=== PATIENT | male | born 1985 ===

== ENCOUNTER 2024-09-04 13:19 | Outpatient (AMB) | payer BC, SELFPAY ==
--- NOTE | 2024-09-04 13:22 | MHC.PC.OV ---
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: No Accompanied by: Self / Same As Patient Allergies No Known Allergies Allergy (Verified 09/04/24 13:39) Medication List - Last Reconciled 09/04/24 by TJ Sanchez lisinopril-hydrochlorothiazide 10-12.5 mg 1 tab PO DAILY Tobacco use date assessed: 09/04/24 Dental Screening Dental Screen Date: 09/04/24 Did you have a dental visit in the last 12 months?: Yes Did you have a dental problem in the last 6 months where you did not have access to dental care?: No Was dental information given to patient?: 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 The patient has a history of essential hypertension, which he monitors daily using a blood pressure cuff provided by his insurance. He reports that his blood pressure readings are generally below 120/80 mmHg, although they can be elevated when he is nervous or after consuming coffee. The patient also has a history of obstructive sleep apnea, for which he uses a CPAP machine at home. He describes his condition as moderate and states that it does not severely impact his daily activities. Family history includes hypertension and diabetes, with his mother having osteoporosis and his father having ALS. The patient has a sister who is currently healthy. Reports that he does not have any concerns today He is here to establish care Reports he drinks coffee throughout the day, even before going to bed He had one black coffee before this appointment-question the reason for his elevated blood pressure he does no smoke or drinks alcohol Denies chest pain, shortness of breath, heart palpitation or dizziness Denies abdominal pain or change in bowel habits Denies any urinary symptoms PFSH Medical History CARLOS (obstructive sleep apnea) HTN (hypertension) Surgical History No pertinent past surgical history Family History Father ALS (amyotrophic lateral sclerosis) Diabetes mellitus Mother Diabetes mellitus Osteoporosis Social History Household Members: Significant Other and Children Both parents involved: Yes Caregiver staying overnight: No Housing: House Are you a primary childcare director to a significant other at home: No Do you presently have visiting nurse or other home services: No Alcohol intake: never Patient Tobacco Use Status: Never used Tobacco e-Cigarette/Vaping Use: Never Used service: No Current occupational status: employed 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 1. Little interest or pleasure in doing things: not at all 2. Feeling down, depressed, or hopeless: not at all 3. Trouble falling or staying asleep, or sleeping too much: not at all 4. Feeling tired or having little energy: not at all 5. Poor appetite or overeating: not at all 6. Feeling bad about yourself - or that you are a failure or have let yourself or your family down: not at all 7. Trouble concentrating on things, such as reading the newspaper or watching television: not at all 8. Moving or speaking so slowly that other people could have noticed. Or the opposite - being so fidgety or restless that you have been moving around a lot more than usual: not at all 9. Thoughts that you would be better off or of hurting yourself in some way: not at all Total score: 0 Depression Screening Interpretation: Negative Depression Screening Done: Yes 72737 - PHQ-9 Billing: Yes Source: Developed by Drs. Javier Sahu, Dipak Lam and colleagues, with an educational patsy from [employer]. Thrive Questionnaire Date Thrive assessed: 09/04/24 I am a: Patient What is your living situation today?: I have a steady place to live Within the past 12 months, did the food you bought not last and you didn't have the money to get more?: Never true Within the past 12 months, did you worry whether your food would run out before you got money to buy more?: Never true Do you have trouble paying for medicines?: No Do you have trouble getting transportation to medical appointments?: No Do you have trouble paying your heating and electricity bill?: No Do you have trouble taking care of your child, family member or friend?: No Do you have trouble with day-to-day activities such as bathing, preparing meals, shopping, managing finances, etc.?: No Are you currently unemployed and looking for a job?: No Are you interested in more education?: No Please select the resources that you would like help with: None Currently or been in a relationship where the following occur: No concerns reported THRIVE Score: 0 AUDIT C Alcohol Use Questionnaire (AUDIT-C) 1. How often do you have a drink containing alcohol?: Never 3. How often do you have six or more drinks on one occasion?: Never Total Score: 0 NICOLAS-7 AMB Questionnaire NICOLAS-7 Date NICOLAS - 7 assessed: 09/04/24 Feeling nervous, anxious, or on edge: 0 = Not at all Not being able to stop or control worryin = Not at all Worrying too much about different things: 0 = Not at all Trouble relaxin = Not at all Being so restless that it is hard to sit still: 0 = Not at all Becoming easily annoyed or irritable: 0 = Not at all Feeling afraid as if something awful might happen: 0 = Not at all Total NICOLAS-7 score (0-4 normal; 5-9 mild; 10-14 moderate; 15-21 severe): 0 Source: Developed by Drs. Javier Sahu, Dipak Lam and colleagues, with an educational patsy from [employer]. NICOLAS-7 Assessment Billing NICOLAS-7 Assessment Tool: NICOLAS-7 Assessment 11768 Review of Systems Const Denies headache(s) Eyes Denies loss of vision ENT Denies vertigo, Denies dizziness, Denies headache(s) and Denies sore throat Card Denies chest pain, Denies leg edema and Denies lightheadedness Resp Denies cough, Denies hemoptysis and Denies wheezing GI Denies abdominal pain, Denies melena, Denies constipation, Denies diarrhea and Denies vomiting Denies dysuria, Denies urinary frequency and Denies urinary urgency Musc Denies arthralgias, Denies joint swelling, Denies numbness and Denies tingling Neuro Denies Abnormal speech present, Denies behavioral changes, Denies vertigo, Denies dizziness, Denies headache(s), Denies loss of vision, Denies memory loss, Denies numbness and Denies tingling Psych Denies anxiety, Denies behavioral changes, Denies depression, Denies memory loss and Denies panic attacks Soren/Lymph Denies easy bleeding and Denies easy bruising Aller/Immun Denies wheezing Physical exam (Primary Care) Vital Signs: Last Vital Signs Temp 97.1 F 09/04/24 13:24 Pulse 70 09/04/24 13:24 Resp 18 09/04/24 13:24 BP 142/70 H 09/04/24 13:24 Pulse Ox 95 09/04/24 13:24 Oxygen Delivery Method Room Air 09/04/24 13:24 BMI result Body Mass Index 42.3 Tobacco/Smoking Status: Tobacco use Status Tobacco use date assessed 09/04/24 09/04/24 13:33 Patient Tobacco Use Status Never used Tobacco 09/04/24 13:33 e-Cigarette/Vaping Use Never Used 09/04/24 13:33 PHQ-9: PHQ-9 Score PHQ-9: Total score 0 09/04/24 14:09 Depression Screening Interpretation: Negative Thrive Assessment: Date of Thrive Assessment Date Thrive assessed 09/04/24 09/04/24 13:22 Currently or been in a relationship where the following occur: No concerns reported Const General: healthy appearing, no acute distress, alert and awake Nutritional Appearance: well nourished Orientation/consciousness: oriented to person, oriented to place and oriented to time HENMT Ears: TM's normal bilaterally General nose exam: Normal nasal mucous membranes and turbinates present Eyes Conjunctivae: conjunctivae normal Sclerae: sclerae normal Pupils: Equal, round and reactive pupils present Neck Neck: Yes no lymphadenopathy and Yes no JVD Thyroid: Thyroid normal Carotids: no bruits Resp Effort & Inspection: normal respiratory effort and not tachypneic Auscultation: no crackles, no rales, no rhonchi and no wheezes Cardio Rate: regular rate Rhythm: regular rhythm Heart sounds: no murmurs and normal S1 and S2 GI Palpation (GI): Soft to palpation, nontender, no hepatomegaly and no splenomegaly Auscultation: normal bowel sounds Skin General skin exam: no rashes or lesions noted and dry skin Neuro General: oriented to person, oriented to place and oriented to time Cranial nerves: Yes Equal, round and reactive pupils present Speech: No Abnormal speech present Gait exam (Neuro): Normal gait present Motor exam (neuro): no tremor noted Extrem Right upper extremity: full ROM Left upper extremity: full ROM Right lower extremity: full ROM; no edema Left lower extremity: full ROM; no edema Psych Mental Status: mental status grossly normal Speech and movement: Normal speech and movement present Affect: normal affect Attitude: cooperative Thought process: Normal thought process present Coding Level of Care Code New Pt Level 3 (30008) Diagnoses Hypertension, unspecified type I10 Hypertension type: unspecified CARLOS (obstructive sleep apnea) G47.33 Additional Codes NICOLAS-7 Assessment Billing - NICOLAS-7 Assessment Tool: NICOLAS-7 Assessment 37046 ([id number]) PHQ-9 - 59023 - PHQ-9 Billing: Yes ([id number]) Time Spent (min) 34 Assessment & Plan Assessment & Plan (1) HTN (hypertension): Code(s): I10 - Essential (primary) hypertension Category: Medical Qualifiers: Hypertension type: unspecified Qualified Code(s): I10 - Essential (primary) hypertension Plan: Blood pressure 142/70-goal systolic less than 130 mm Hg Reinforced low-salt diet. Decrease caffeine intake. Continue lisinopril-hydrochlorothiazide 10-12.5 mg daily (2) CARLOS (obstructive sleep apnea): Code(s): G47.33 - Obstructive sleep apnea (adult) (pediatric) Category: Medical Plan: Continue CPAP Plan The plan includes conducting blood work to assess kidney, liver, and thyroid function, as well as a comprehensive metabolic panel. The patient is advised to return in 7-8 weeks for a complete physical examination and review of lab results. He is instructed to undergo fasting before the lab tests to ensure accurate results, particularly for cholesterol levels. Patient was informed and verbally consented to the use of an ambient scribe for clinic note documentation during this visit. Orders: Orders Comprehensive Bath. Panel Fast 09/04/24 Z00.00 - Encounter for general adult medical examination without abnormal findings, I10 - Essential (primary) hypertension, G47.33 - Obstructive sleep apnea (adult) (pediatric) UA CC w/rflx Micro + Cult 09/04/24 Z00.00 - Encounter for general adult medical examination without abnormal findings, I10 - Essential (primary) hypertension, G47.33 - Obstructive sleep apnea (adult) (pediatric) Vitamin D 25-OH Total 09/04/24 Z00.00 - Encounter for general adult medical examination without abnormal findings, I10 - Essential (primary) hypertension, G47.33 - Obstructive sleep apnea (adult) (pediatric) Complete Blood Count Auto Diff 09/04/24 Z00.00 - Encounter for general adult medical examination without abnormal findings, I10 - Essential (primary) hypertension, G47.33 - Obstructive sleep apnea (adult) (pediatric) Lipid Panel 09/04/24 Z00.00 - Encounter for general adult medical examination without abnormal findings, I10 - Essential (primary) hypertension, G47.33 - Obstructive sleep apnea (adult) (pediatric) TSH reflex Free T4 09/04/24 Z00.00 - Encounter for general adult medical examination without abnormal findings, I10 - Essential (primary) hypertension, G47.33 - Obstructive sleep apnea (adult) (pediatric) Patient Instructions: - Monitor blood pressure daily and record readings - Use CPAP machine nightly for sleep apnea - Schedule and complete fasting lab tests before next visit
[2024-09-04 13:24] VITALS: BP 142/70; PULSE 70; RESP 18; TEMP 36.2; O2SAT 95; BMI 42.3
--- OUTSIDE RECORDS SUMMARY | 2024-09-04 13:32 | XMS_ITS | Clinical Summary ---
Author Organization [facility] Address [address] [place] [address] Care Team Providers Care President + Publisher Name Role Phone Edd Boyd Primary Care Provider [phone] Source Comments PLEASE NOTE, if this patient is a minor, it may be UNLAWFUL to discuss sensitive information that is contained in these records (such as FAMILY PLANNING, MENTAL HEALTH or SUBSTANCE ABUSE) with the minor patient's parent or other person without the patient's specific authorization.[facility] Allergies No known active allergies Medications lisinopriL-hydroc hlorothiazide 10-12.5 mg per tablet 1 Tablet 12/21/2022 Active lisinopriL-hydroc hlorothiazide 10-12.5 mg per tabletIndications :Essential hypertension Take 1 Tablet by mouth once daily 90 Tablet 3 10/03/2023 Active Active Problems Problem Noted Date Diagnosed Date Class 2 obesity 12/21/2022 Obstructive sleep apnea syndrome 12/21/2022 Snoring 08/18/2022 Unspecified family circumstance 03/10/2019 Essential hypertension 05/21/2018 Overview (10/03/2023): Started on 5mg Lisinopril 05/21/18 Outside Source Comment: Overview: Started on 5mg Lisinopril 05/21/18 Immunizations Immunization Administration Dates Next Due Hep A, adult 10/15/2020 Hep B, Adult/Adol ([id number]/RECOMBIVAX-AD ULT) 10/15/2020 Family History Medical History Relation Name Comments Diabetes Father Hypertension Father Heart Problems Maternal Grandfather Cancer Maternal Grandmother lung, t hroat Diabetes Mother Hypertension Mother Heart Problems Paternal Grandfather Relation Name Status Comments Father Maternal Grandfather Maternal Grandmother Mother Paternal Grandfather Social History Tobacco Use Types Packs/Day Years Used Date Smoking Tobacco: Never Smokeless Tobacco: Never Tobacco Cessation:Counseling Given: Not Answered Alcohol Use Standard Drinks/Week Comments No 0 (1 standard drink = 0.6 oz pur e alcohol) Social Connections Answer Date Recorded How often do you feel lonely or isolated from th ose around you? 1 10/03/2023 Financial Resource Strain Answer Date R ecorded Hard to pay for: Food 1 10/03/2023 Stress Answer Date Recorded Do you feel these kinds of stress these days? 1 10/03/2023 Physical Activity Answer Date Recorded Physical Activity 0 09/30/2018 Food Insecurity Answer Date Recorded Hard to pay for: Food 1 10/03/2023 Transportation Needs Answer Date Record ed Hard to pay for: Transportation 1 10/03/2023 Housing Stability Answer Date Recorded Hard to pay for: Rent/Mortgage payment 1 10/03/2023 Safety and Environment Answer Date César rded Safety 0 08/14/2022 Utilities Answer Date Recorded Hard to pay for: Utilities 1 10/02 Employment Answer Date Recorded Employment 0 09/30/2018 Sex and Gender Information Value Date Recorded Sex Assigned at Male 02/20/2018 6:48 AM PST Legal Sex Male 9:34 AM PST Gender Identity Male 02/20/2018 6:48 AM PST Sexual Orientation Straight 02/20/2018 6: 48 AM PST Last Filed Vital Signs Vital Sign Reading Time Taken Comments Blood Pressure 116/75 10/03/2023 9:40 AM EDT Pulse 72 10/03/2023 9:40 AM EDT Temperature 36.9 C (98.5 F) 10/03/2023 9:40 AM EDT Respiratory Rate 18 10/03/2023 9:40 AM EDT Oxygen Saturation 97% 10/03/2023 9:40 AM EDT Inhaled Oxygen Concentration - - Weight 137.4 kg (303 lb) 10/03/2023 9:40 AM EDT Height 182.9 cm (6') 10/03/2023 9:40 AM EDT Body Mass Index 41.09 10/03/2023 9:40 AM EDT Plan of Treatment Health Maintenance Due Date Last Done Comments Anxiety Screening 1985 Imm-Hepatitis B (2 of 3 - 19 + 3-dose series) 11/12/2020 10/15/2020 [id number]-UISNK-13 (3 - 2023- season) 2023 06/20/2020, 05/23/2020 Diabetes Screening 11/05/2023 11/04/2020, 0 11/04/2020, 02/20/2018, Additional history exists Alcohol and Drug Screen 02/06/2024 08/15/19, 03/07/2021, 10/15/2020, Additional history exists Depression Annual Screen 02/06/2024 10/03/2023, 02/05 Annual Wellness (Adult): Indicated (All Coverage) 10/02/2024 10/03/2023, 08/14/2022, 10/15/2020, Additional history exists Tobacco Screening 10/02/2024 10/03/2023, 10/15/2020 Lipid Screening 08/14/2025 08/14/2022, 10/08, 02/20/2018, Additional history exists HIV Screening Completed 02/20/2018, 02/20/2018 Hepatitis C Screening Completed 02/20/2018 Imm-DTaP/Tdap/Td Discontinued Imm-Influenza Discontinued Procedures Procedure Name Priority Date/Time Associated Diagnosis Comments LIPID PANEL Routine 08/14/2022 10:11 AM EDT Annual physical exam COMPREHENSIVE METABOLIC PANEL Routine 11/04/2020 8:10 AM EDT Essential hypertension Class 3 severe obesity due to excess calories with serious comorbidity and body mass index (BMI) of 45.0 to 49.9 in adult ([facility]) Routine adult health maintenance ANTIBODY HIV-1&HIV-2 SINGLE RESULT Routine 02/20/2018 10:35 AM EST Encounter for general adult medical examination with abnormal findings HEPATITIS A,B,C PANEL Routine 02/20/2018 10:35 AM EST Encounter for general adult medical examination with abnormal findings from Last 3 Months or Most Recently Relevant to Health Maintenance Results * (ABNORMAL) LIPID PANEL (08/14/2022 10:11 AM EDT) Pathologist [facility] CHOLESTEROL, TOTAL 179 <200 mg/dL [facility] HDL CHOLESTEROL 40 > OR = 40 mg/dL [facility] TRIGLYCERIDES 76 <150 mg/dL [facility] LDL-CHOLESTEROL 122(H) 99 mg/dL (calc) [facility] Comment: Reference range: <100 Desirable range <100 mg/dL for primary prevention; <70 mg/dL for patients with CHD or diabetic patients with > or = 2 CHD risk factors. LDL-C is now calculated using the Kwame calculation, which is a validated novel method providing better accuracy than the Friedewald equation in the estimation of LDL-C. Junior SS et al. MEAGAN. 2013;310(19): 5176-5101 (http://education.Balakam/faq/TRE427) CHOL/HDLC RATIO 4.5 <5.0 (calc) [employer] [facility] NON-HDL CHOLESTEROL 139(H) <130 mg/dL (calc) [facility] Comment: For patients with diabetes plus 1 major ASCVD risk factor, treating to a non-HDL-C goal of <100 mg/dL (LDL-C of <70 mg/dL) is considered a therapeutic option. Blood Blood / Unknown 08/14/2022 1 0:11 AM EDT 08/14/2022 10:12 AM EDT Edd EL LAB - BLOOD DRAW Final Result [employer] [address] [address], [employer] [address] [address] * COMPREHENSIVE METABOLIC PANEL (11/04/2020 8:10 AM EDT) [facility] GLUCOSE 97 65 - 99 mg/dL [facility] Comment: Fasting reference interval UREA NITROGEN (BUN) 18 7 - 25 mg/dL [facility] CREATININE (blood) 0.95 0.60 - 1.35 mg/dL [facility] GFR ESTIMATED 102 > OR = 60 mL/min/1 .73m2 [facility] EGFR 118 > OR = 60 mL/min/1 .73m2 [facility] BUN/CREATININE RATIO NOT APPLICABLE 6 - 22 [facility] SODIUM 138 135 - 146 mmol/L [facility] POTASSIUM 4.6 3.5 - 5.3 mmol/L [facility] CHLORIDE 100 98 - 110 mmol/L [facility] CARBON DIOXIDE 32 20 - 32 mmol/L [facility] CALCIUM 9.9 8.6 - 10.3 mg/dL [facility] PROTEIN, TOTAL 7.0 6.1 - 8.1 g/dL [facility] ALBUMIN 4.7 3.6 - 5.1 g/dL [facility] GLOBULIN 2.3 1.9 - 3.7 g/dL (calc) [facility] ALBUMIN/GLOBUL IN RATIO 2.0 1.0 - 2.5 (calc) [facility] BILIRUBIN, TOTAL 0.6 0.2 - 1.2 mg/dL [facility] ALKALINE PHOSPHATASE 80 36 - 130 U/L [facility] AST 23 10 - 40 U/L [facility] ALT 27 9 - 46 U/L [facility] Blood Blood / Unknown 11/04/2020 8 :10 AM EDT 11/04/2020 8:12 AM EDT Narrative [facility] - 11/04/2020 8:57 PM EDT FASTING:YES Edd EL LAB - BLOOD DRAW Edited Result - Final [facility] [address] [address], [facility] [address] [address] * HEPATITIS A,B,C PANEL (02/20/2018 10:35 AM EST) HEPATITIS B SURFACE ANTIBODY NEGATIVE NEGATIVE [facility] HEPATITIS B SURFACE ANTIGEN NEGATIVE NEGATIVE [facility] Comment: Over the counter supplements containing high doses of biotin may interfere with this assay. If interference is suspected, patients shoud be retested after refraining from biotin supplements for 72 hours. HEPATITIS C VIRUS DIAGNOSTIC NEGATIVE NEGATIVE [facility] HEPATITIS A ANTIBODY TOTAL NEGATIVE NEGATIVE [facility] Comment: Over the counter supplements containing high doses of biotin may interfere with this assay. If interference is suspected, patients shoud be retested after refraining from biotin supplements for 72 hours. HEPATITIS B CORE ANTIBODY NEGATIVE NEGATIVE [facility] Blood specimen (specimen) Blood / Unknown 02/20/2018 10:35 AM EST 02/20/2018 11:20 AM EST Narrative [facility] - 02/20/2018 4:34 PM EST [employer] [address] [employer] - Migdalia Casey MD PT ID [id number] ORD# [id number] Alexander Don PA-C LAB - BLOOD DRAW Edited Resul t - Final Performing Organization Address [facility] [place] [address], * HIV-1 & HIV-2 ANTIBODIES (02/20/2018 10:35 AM EST) [facility] HIV 1 AND 2 ANTIBODY SCREEN NEGATIVE NEGATIVE [facility] Comment: This assay is a 4th generation assay allowing for earlier detection of HIV infection by detecting the presence of the HIV-1 p24 antigen as well as the traditional antibodies to HIV type 1 (including group O) and type 2. Use of a 4th generation assay is the current CDC recommendation for HIV screening. Blood specimen (specimen) Blood / Unknown 02/20/2018 10:35 AM EST 02/20/2018 11:20 AM EST Narrative [facility] 02/20/2018 5:03 PM EST [employer] [address] [employer] - Migdalia Casey MD PT ID [id number] ORD# [id number] Alexander Don PA-C LAB - BLOOD DRAW Final Result Performing Organization Address [facility]/[place] [address], from Last 3 Months or Most Recently Relevant to Health Maintenance Insurance [employer]I [employer]AS Care Teams President + Publisher Relationship Specialty Start Date End Date Edd Boyd PA [address] [place] [address] PCP - General FAMILY MEDICINE PA 09/09/20
== END 2024-09-04 14:03 | disposition home or self-care (01) ==
LOC: HO.HMCH 13:20
DX: I10 Essential (primary) hypertension (principal); G47.33 Obstructive sleep apnea (adult) (pediatric)

== ENCOUNTER → 2024-09-04 13:19 | Outpatient (BNVA) | payer BC, SELFPAY | DX: I10 Essential (primary) hypertension (principal); G47.33 Obstructive sleep apnea (adult) (pediatric); Z79.899 Other long term (current) drug therapy; Z13.31 Encounter for screening for depression; Z13.39 Encounter for screening examination for other mental health and behavioral disorders | CPT/HCPCS: 96127 ==

== ENCOUNTER 2024-10-23 07:08 | Outpatient (REF) | payer BC, SELFPAY ==
--- OUTSIDE RECORDS SUMMARY | 2024-10-23 07:12 | XMS_ITS | Clinical Summary ---
Author Organization [facility] Address [address] [place] [address] Care Team Providers Care Inpatient Auditor Name Role Phone Edd Boyd Primary Care Provider [phone] Source Comments PLEASE NOTE, if this patient [...] Hep A, adult 10/15/2020 Hep B, Adult/Adol ([id number]-AD ULT) 10/15/2020 Family History Medical History Relation [...] Date Last Done Comments Anxiety Screening 1983 Imm-HPV (1 - 3-dose SCDM series) 07/29/2010 Imm-Hepatitis B (2 of 3 - 19 + 3-dose series) 11/12/2020 10/15/2020 Tobacco Screening 10/15/2021 10/15/2020 Diabetes Screening 11/05/2023 11/04/2020, 0 11/04/2020, 02/20/2018, Additional history exists Alcohol and Drug Screen 02/06/2024 08/15/19, 03/07/2021, 10/15/2020, Additional history exists Depression Annual Screen 02/06/2024 10/03/2023, 02/05 Annual Wellness (Adult): Indicated (All Coverage) 10/02/2024 10/03/2023, 08/14/2022, 10/15/2020, Additional history exists [id number] ( season) 2024 06/20/2020, 05/23/2020 Lipid Screening 08/14/2025 08/14/2022, 10/08, 02/20/2018, Additional [...] (BMI) of 45.0 to 49.9 in adult ([facility]) Routine adult health maintenance ANTIBODY HIV-1&HIV-2 SINGLE RESULT Routine 02/20/2018 10:35 AM EST Encounter for general adult medical examination with abnormal findings HEPATITIS A,B,C PANEL Routine 02/20/2018 10:35 AM EST Encounter for general adult medical examination with abnormal findings from Last 3 Months or Most Recently Relevant to Health Maintenance Results * (ABNORMAL) LIPID PANEL (08/14/2022 10:11 AM EDT) CHOLESTEROL, TOTAL 179 <200 mg/dL [facility] HDL CHOLESTEROL 40 > OR = 40 mg/dL [facility] TRIGLYCERIDES 76 <150 mg/dL [facility] LDL-CHOLESTEROL 122(H) 99 mg/dL (calc) [facility] Comment: Reference range: <100 Desirable range <100 mg/dL for primary prevention; <70 mg/dL for patients with CHD or diabetic patients with > or = 2 CHD risk factors. LDL-C is now calculated using the Kwame calculation, which is a validated novel method providing better accuracy than the Friedewald equation in the estimation of LDL-C. Junior SS et al. MEAGAN. 2013;310(19): 5410-7925 (http://education.Clearhaus/faq/ZGK402) CHOL/HDLC RATIO 4.5 <5.0 (calc) [facility] NON-HDL CHOLESTEROL 139(H) <130 mg/dL (calc) [facility] Comment: For patients with diabetes plus 1 major ASCVD risk factor, treating to a non-HDL-C goal of <100 mg/dL (LDL-C of <70 mg/dL) is considered a therapeutic option. Blood Blood / Unknown 08/14/2022 1 0:11 AM EDT 08/14/2022 10:12 AM EDT Edd [facility] - BLOOD DRAW Final Result [employer] [facility] [address] [address], [facility] [address] [place] [address] * COMPREHENSIVE METABOLIC PANEL (11/04/2020 8:10 AM EDT) Pathologist [facility] GLUCOSE 97 65 - 99 mg/dL [facility] Comment: Fasting reference interval [facility] NITROGEN (BUN) 18 7 - 25 mg/dL [facility] CREATININE (blood) 0.95 0.60 - 1.35 mg/dL [facility] GFR ESTIMATED 102 > OR = 60 mL/min/1 .73m2 [facility] EGFR 118 > OR = 60 mL/min/1 .73m2 [facility] BUN/CREATININE RATIO NOT APPLICABLE 6 - 22 [facility] SODIUM 138 135 - 146 mmol/L [facility] POTASSIUM 4.6 3.5 - 5.3 mmol/L [facility] CHLORIDE 100 98 - 110 mmol/L [facility] CARBON DIOXIDE 32 20 - 32 mmol/L [facility] CALCIUM 9.9 8.6 - 10.3 mg/dL [facility] PROTEIN, TOTAL 7.0 6.1 - 8.1 g/dL [facility] [employer] [facility] ALBUMIN 4.7 3.6 - 5.1 g/dL [facility] GLOBULIN 2.3 1.9 - 3.7 g/dL (calc) [facility] ALBUMIN/GLOBUL IN RATIO 2.0 1.0 - 2.5 (calc) [facility] BILIRUBIN, TOTAL 0.6 0.2 - 1.2 mg/dL [facility] ALKALINE PHOSPHATASE 80 36 - 130 U/L [facility] AST 23 10 - 40 U/L [facility] ALT 27 9 - 46 U/L [facility] Blood Blood / Unknown 11/04/2020 8 :10 AM EDT 11/04/2020 8:12 AM EDT Narrative [facility] - 11/04/2020 8:57 PM EDT FASTING:YES us Edd [facility] - BLOOD DRAW Edited Result - Final [facility] [address] [address], [facility] [address] [address] * HEPATITIS A,B,C PANEL (02/20/2018 10:35 AM EST) HEPATITIS B SURFACE ANTIBODY NEGATIVE NEGATIVE [facility] HEPATITIS B SURFACE ANTIGEN NEGATIVE NEGATIVE [facility] Comment: Over the counter supplements containing high doses of biotin may interfere with this assay. If interference is suspected, patients shoud be retested after refraining from biotin supplements for 72 hours. HEPATITIS C VIRUS DIAGNOSTIC NEGATIVE NEGATIVE [facility] HEPATITIS A ANTIBODY TOTAL NEGATIVE NEGATIVE [facility] Comment: Over the counter supplements containing high doses of biotin may interfere with this assay. If interference is suspected, patients shoud be retested after refraining from biotin supplements for 72 hours. HEPATITIS B CORE ANTIBODY NEGATIVE NEGATIVE [facility] Blood specimen (specimen) Blood / Unknown 02/20/2018 10:35 AM EST 02/20/2018 11:20 AM EST Narrative [facility] - 02/20/2018 4:34 PM EST [employer], [place] [address] Outpatient Physical Therapist Assistant - Migdalia Casey MD PT ID [id number] ORD# [id number] Alexander Don PA-C LAB - BLOOD DRAW Edited Resul t - Final Performing Organization Address [facility] [address], * HIV-1 & HIV-2 ANTIBODIES (02/20/2018 10:35 AM EST) [facility] HIV 1 AND 2 ANTIBODY SCREEN NEGATIVE NEGATIVE [facility] Comment: This assay is a [...] AM EST 02/20/2018 11:20 AM EST Narrative [facility] 02/20/2018 5:03 PM EST [employer], [place] [address] Outpatient Physical Therapist Assistant - Migdalia Casey MD PT ID [id number] ORD# [id number] Alexander Don PA-C LAB - BLOOD DRAW Final Result Performing Organization Address [facility] Phone Number [address] [place] [address], from Last 3 Months or Most Recently Relevant to Health Maintenance Insurance [employer] Care Teams Inpatient Auditor Relationship Specialty Start Date End Date Edd Boyd PA [address] [place] [address] PCP - General FAMILY MEDICINE [facility] 09/09/20
[2024-10-23 08:40] LABS: MANUAL DIFF FLAG NO
[2024-10-23 08:46] LABS: Hematocrit 42.7 % (42.0-52.0); Hemoglobin 14.4 g/dl (14.0-18.0); Imm Gran Abs Auto 0.02 X10*3/uL (0.00-0.03); Imm Gran Pct Auto 0.4 % (0.0-0.4); Lymphocytes Absolute Auto 1.6 X10*3/uL (1.2-4.9); Mean Corpuscular HGB Conc 33.7 g/dl (31.0-36.0); Mean Corpuscular Hemoglobin 28.1 pg (27.0-33.0); Mean Corpuscular Volume 83.4 fL (80.0-98.0); NRBC Abs Auto 0.000 X10*3/uL (0.0-0.012); NRBC Pct Auto 0.0 /100WBC (0.0-0.2); Platelet Count 215 X10*3/uL (160-400); Red Blood Count 5.12 X10*6/uL (4.60-5.80); White Blood Count 5.5 X10*3/uL (4.8-10.8)
[2024-10-23 10:51] LABS: Albumin Level 4.6 g/dL (3.5-5.0); Alkaline Phosphatase 76 U/L (39-117); Anion Gap 9 (12-20); Aspartate Amino Transferase 41 U/L (5-37); Blood Urea Nitrogen 17 mg/dL (9-16); Calcium 9.5 mg/dL (8.4-10.2); Carbon Dioxide 30 mmol/L (22-29); Chloride 103 mmol/L (96-108); Cholesterol 188 mg/dL (<200); Estimated Glomerular Filt Rate > 60; HDL Cholesterol 32 mg/dL (>40); Potassium 4.0 mmol/L (3.3-5.1); Sodium 138 mmol/L (135-145); Total Protein 7.5 g/dL (6.5-8.0); Triglycerides 96 mg/dL (<150)
[2024-10-23 11:14] LABS: Alanine Aminotransferase 35 U/L (0-40)
[2024-10-23 11:38] LABS: Appearance Urine Clear; Glucose Urine UA Negative (Negative); PH 5.5 (5.0-9.0); Specific Gravity - Urine 1.015 (1.005-1.025)
== END 2024-10-23 07:09 | disposition home or self-care (01) ==
LOC: HO.HMGCLDS 07:08
DX: Z00.00 Encounter for general adult medical examination without abnormal findings (principal); I10 Essential (primary) hypertension; G47.33 Obstructive sleep apnea (adult) (pediatric)
CPT/HCPCS: 36415; 80053; 80061; 81003; 82306; 84443; 85025

== ENCOUNTER 2024-10-31 08:19 | Outpatient (AMB) | payer BC, SELFPAY ==
--- NOTE | 2024-10-31 08:20 | A.OFFPC_ITS ---
Vital Signs 10/31/24 08:21 Height 5 ft 11 in Weight 300 lb 2 oz BMI 41.9 BP 102/70 Blood Pressure Location Lt brachial Position Sitting Respiration 18 Pulse 71 Pulse Source Pulse Oximeter Temp 97.3 F Temp Source Temporal Artery Scan Pulse Oximetry (%) 95 Oxygen Delivery Method Room Air Intake Visit Reasons: Annual Exam Rigging Engineer Required: No Accompanied by: Self / Same As Patient Allergies No Known Allergies Allergy (Verified 10/31/24 08:30) Medication List - Last Reconciled 10/31/24 by TJ Sanchez lisinopril-hydrochlorothiazide 10-12.5 mg 1 tab PO DAILY Tobacco use date assessed: 10/31/24 Dental Screening Dental Screen Date: 10/31/24 Did you have a dental visit in the last 12 months?: Yes Did you have a dental problem in the last 6 months where you did not have access to dental care?: No Was dental information given to patient?: Patient has dentist HPI Annual Exam HPI Details Dentist: up to date Eye:Reports that he ever went to a eye doctor-recommend Snellen: Right: Left: Corrected vision: no STI screening: Colonoscopy: n/a Pap Smer:n/a PHQ-9: Flu:no COVID:x2 Tdap:declines Diet:regular Exercise:At times he goes the gym and has been walking regularly The patient is a 39-year-old male presenting with a wellness check and review of laboratory results. The patient reports no issues with visual acuity, although an eye exam is recommended to ensure ocular health. The patient has not received a flu vaccine or additional COVID-19 vaccines beyond the initial two doses. A tetanus vaccination was discussed, but the patient is not considered high risk due to limited outdoor activities. The patient engages in regular physical activity, including gym workouts and walking, achieving approximately 10,000 steps daily. Dietary habits include frequent consumption of red meat and egg yolks, which may contribute to elevated cholesterol levels. Laboratory results indicate elevated LDL cholesterol at 137 mg/dL and low HDL cholesterol, with recommendations to increase omega-3 intake and reduce red meat consumption. A slightly elevated liver enzyme was noted, potentially related to recent weight gain and dietary habits. The patient's carbon dioxide level is slightly elevated, possibly due to environmental exposure at work, though it is not considered clinically signific ant at this time. [facility] Medical History CARLOS (obstructive sleep apnea) HTN (hypertension) Surgical History No pertinent past surgical history Family History Father ALS (amyotrophic lateral sclerosis) Diabetes mellitus Mother Diabetes mellitus Osteoporosis Social History Household Members: Significant Other and Children Both parents involved: Yes Caregiver staying overnight: No Housing: House Are you a primary special needs child caregiver to a significant other at home: No Do you presently have visiting nurse or other home services: No Alcohol intake: never Patient Tobacco Use Status: Never used Tobacco e-Cigarette/Vaping Use: Never Used service: No Current occupational status: employed 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 Current occupational exposures/hazards: No Cognitive needs: No Hearing needs: No Vision needs: No Questionnaire Thrive Questionnaire Date Thrive assessed: 09/04/24 I am a: Patient What is your living situation today?: I have a steady place to live Within the past 12 months, did the food you bought not last and you didn't have the money to get more?: Never true Within the past 12 months, did you worry whether your food would run out before you got money to buy more?: Never true Do you have trouble paying for medicines?: No Do you have trouble getting transportation to medical appointments?: No Do you have trouble paying your heating and electricity bill?: No Do you have trouble taking care of your child, family member or friend?: No Do you have trouble with day-to-day activities such as bathing, preparing meals, shopping, managing finances, etc.?: No Are you currently unemployed and looking for a job?: No Are you interested in more education?: No Please select the resources that you would like help with: None Currently or been in a relationship where the following occur: No concerns reported THRIVE Score: 0 NICOLAS-7 AMB Questionnaire NICOLAS-7 Date NICOLAS - 7 assessed: 09/04/24 Source: Developed by Drs. Javier Sahu, Michelle Figueroa, Dipak García and colleagues, with an educational patsy from [employer]. Review of Systems Const Denies headache(s) Eyes Denies loss of vision ENT Denies vertigo, Denies dizziness, Denies headache(s) and Denies sore throat Card Denies chest pain, Denies leg edema and Denies lightheadedness Resp Denies cough, Denies hemoptysis and Denies wheezing GI Denies abdominal pain, Denies melena, Denies constipation, Denies diarrhea and Denies vomiting Denies dysuria, Denies urinary frequency and Denies urinary urgency Musc Denies arthralgias, Denies joint swelling, Denies numbness and Denies tingling Neuro Denies Abnormal speech present, Denies behavioral changes, Denies vertigo, Denies dizziness, Denies headache(s), Denies loss of vision, Denies memory loss, Denies numbness and Denies tingling Psych Denies anxiety, Denies behavioral changes, Denies depression, Denies memory loss and Denies panic attacks Soren/Lymph Denies easy bleeding and Denies easy bruising Aller/Immun Denies wheezing Physical exam (Primary Care) Vital Signs: Last Vital Signs Temp 97.3 F 10/31/24 08:21 Pulse 71 10/31/24 08:21 Resp 18 10/31/24 08:21 BP 102/70 10/31/24 08:21 Pulse Ox 95 10/31/24 08:21 Oxygen Delivery Method Room Air 10/31/24 08:21 BMI result Body Mass Index 41.9 Tobacco/Smoking Status: Tobacco use Status Tobacco use date assessed 10/31/24 10/31/24 08:27 Patient Tobacco Use Status Never used Tobacco 10/31/24 08:27 e-Cigarette/Vaping Use Never Used 10/31/24 08:27 Thrive Assessment: Date of Thrive Assessment Date Thrive assessed 09/04/24 10/31/24 08:27 Currently or been in a relationship where the following occur: No concerns reported Const General: healthy appearing, no acute distress, alert and awake Nutritional Appearance: well nourished Orientation/consciousness: oriented to person, oriented to place and oriented to time HENMT Ears: TM's normal bilaterally General nose exam: Normal nasal mucous membranes and turbinates present Eyes Conjunctivae: conjunctivae normal Sclerae: sclerae normal Pupils: Equal, round and reactive pupils present Neck Neck: Yes no lymphadenopathy and Yes no JVD Thyroid: Thyroid normal Carotids: no bruits Resp Effort & Inspection: normal respiratory effort and not tachypneic Auscultation: no crackles, no rales, no rhonchi and no wheezes Cardio Rate: regular rate Rhythm: regular rhythm Heart sounds: S1 normal heart sound present, S2 normal heart sound present, no murmurs and normal S1 and S2 GI Palpation (GI): Soft to palpation, nontender, no hepatomegaly and no splenomegaly Auscultation: normal bowel sounds General: Yes no CVA tenderness Back/Spine/Pelvis Back: no CVA tenderness Thoracic/Lumbar Spine: thoracic and lumbar spine normal to inspection Skin General skin exam: no rashes or lesions noted and dry skin Neuro General: oriented to person, oriented to place and oriented to time Cranial nerves: Yes CN's II-XII intact bilaterally and Yes Equal, round and reactive pupils present Speech: No Abnormal speech present Gait exam (Neuro): Normal gait present Motor exam (neuro): no tremor noted Deep tendon reflexes (DTR's): Right triceps reflex intensity grade: 2+, Left triceps reflex intensity grade: 2+, Rt Biceps (C5, C6): 2+, Left biceps reflex intensity grade: 2+, Right brachioradialis reflex intensity grade: 2+, Left brachioradialis reflex intensity grade: 2+, Right patellar reflex intensity grade: 2+ and Left patellar reflex intensity grade: 2+ Extrem Right upper extremity: full ROM Left upper extremity: full ROM Right lower extremity: full ROM; no edema Left lower extremity: full ROM; no edema Psych Mental Status: mental status grossly normal Speech and movement: Normal speech and movement present Affect: normal affect Attitude: cooperative Thought process: Normal thought process present Results Reviewed Results Reviewed: Laboratory Tests 10/23/24 07:15 WBC 5.5 RBC 5.12 Hgb 14.4 Hct 42.7 MCV 83.4 MCH 28.1 MCHC 33.7 RDW 12.7 Plt Count 215 MPV 10.9 Sodium 138 Potassium 4.0 Chloride 103 Carbon Dioxide 30 H Anion Gap 9 L BUN 17 H Creatinine 0.97 Estimated GFR > 60 Fasting Glucose 94 Calcium 9.5 Total Bilirubin 0.6 AST 41 H ALT 35 Alkaline Phosphatase 76 Total Protein 7.5 Albumin 4.6 Triglycerides 96 Cholesterol 188 LDL Cholesterol, Calc 137 H HDL Cholesterol 32 L 25-OH Vitamin D Total 60.2 TSH 1.76 Urine Color Yellow Urine Appearance Clear Urine pH 5.5 Ur Specific [place] 1.015 Urine Protein Negative Urine Glucose (UA) Negative Urine Ketones Negative Urine Blood Negative Urine Nitrite Negative Ur Leukocyte Esterase Negative Coding Level of Care Code Est Pt Prev Care 40-64y([address]) Diagnoses Annual physical exam Z00.00 CARLOS (obstructive sleep apnea) G47.33 Elevated AST (SGOT) R74.01 Pure hypercholesterolemia E78.00 Hyperlipidemia type: pure hypercholesterolemia Hypertension, unspecified type I10 Hypertension type: unspecified Morbid obesity with BMI of 40.0-44.9, adult E66.01; Z68.41 Time Spent (min) 38 Assessment & Plan Assessment & Plan (1) Annual physical exam: Code(s): Z00.00 - Encounter for general adult medical examination without abnormal findings Category: Medical Plan: Preventative guidelines and recent labs reviewed with the patient. The patient is update on dental exam and has not had his eyes checked. Recommended to have this done at least every two years. Denies any visual issues. Due for TDAP- declines, reports that he does not routinely takes the flu vaccine. He had the two first covid doses. (2) CARLOS (obstructive sleep apnea): Code(s): G47.33 - Obstructive sleep apnea (adult) (pediatric) Category: Medical Plan: Continue CPAP (3) Elevated AST (SGOT): Code(s): R74.01 - Elevation of levels of liver transaminase levels Category: Medical Plan: A slightly elevated liver enzyme was noted, potentially related to recent weight gain and dietary habits. The patient is advised to monitor dietary intake, particularly reducing fatty foods, and a follow-up comprehensive metabolic panel (CMP) is scheduled in three months. (4) HLD (hyperlipidemia): Code(s): E78.5 - Hyperlipidemia, unspecified Category: Medical Qualifiers: Hyperlipidemia type: pure hypercholesterolemia Qualified Code(s): E78.00 - Pure hypercholesterolemia, unspecified Plan: The patient has elevated LDL cholesterol at 137 mg/dL and low HDL cholesterol. Recommendations include increasing omega-3 intake through fish oil supplements and dietary modifications to reduce red meat and egg yolk consumption. A follow- up lipid panel is planned in three months to assess the effectiveness of these interventions. (5) HTN (hypertension): Code(s): I10 - Essential (primary) hypertension Category: Medical Qualifiers: Hypertension type: unspecified Qualified Code(s): I10 - Essential (primary) hypertension Plan: Blood pressure 102/70-systolic less than 130 mm Hg Reinforced low-salt diet. Decrease caffeine intake Continue lisinopril-hydrochlorothiazide 10-12.5 mg daily (6) Morbid obesity with BMI of 40.0-44.9, adult: Code(s): E66.01 - Morbid (severe) obesity due to excess calories; Z68.41 - Body mass in dex [BMI] 40.0-44.9, adult Category: Medical Plan: Encouraged to exercise for at least 30 minutes a day/5 days a week Healthy eating discussed. Encouraged to eat fruits/vegetables, protein- fish/baked chicken, and to avoid salty/fried foods, sweets, caffeine and carbohydrates. Encouraged to increase water intake 6-8 glasses a day Plan Patient to follow up in 3 months Orders: Orders UA CC w/rflx Micro + Cult 3 Months E78.5 - Hyperlipidemia, unspecified, G47.33 - Obstructive sleep apnea (adult) (pediatric), I10 - Essential (primary) hypert ension, R74.01 - Elevation of levels of liver transaminase levels TSH reflex Free T4 3 Months E78.5 - Hyperlipidemia, unspecified, G47.33 - Obstructive sleep apnea (adult) (pediatric), I10 - Essential (primary) hypertension, R74.01 - Elevation of levels of liver transaminase levels Comprehensive [place]. Panel Fast 3 Months E78.5 - Hyperlipidemia, unspecified, G47.33 - Obstructive sleep apnea (adult) (pediatric), I10 - Essential (primary) hypertension, R74.01 - Elevation of levels of liver transaminase levels Lipid Panel 3 Months E78.5 - Hyperlipidemia, unspecified, G47.33 - Obstructive sleep apnea (adult) (pediatric), I10 - Essential (primary) hypertension, R74.01 - Elevation of levels of liver transaminase levels
[2024-10-31 08:21] VITALS: BP 102/70; PULSE 71; RESP 18; TEMP 36.3; O2SAT 95; BMI 41.9
--- OUTSIDE RECORDS SUMMARY | 2024-10-31 08:32 | XMS_ITS | Clinical Summary ---
Author Organization [facility] Address [address] [place] [address] Care Team Providers Care Porter Head Name Role Phone Edd Boyd Primary Care Provider [phone] Source Comments PLEASE NOTE, if this patient [...] Hep A, adult 10/15/2020 Hep B, Adult/Adol ([id number]-AD ULT) 10/15/2020 Family History Medical History Relation [...] 10/02/2024 10/03/2023, 08/14/2022, 10/15/2020, Additional history exists [id number] ( season) 2024 06/20/2020, 05/23/2020 Lipid Screening [...] (BMI) of 45.0 to 49.9 in adult ([facility]) Routine adult health maintenance ANTIBODY HIV-1&HIV-2 [...] AM EDT) CHOLESTEROL, TOTAL 179 <200 mg/dL [employer] [facility] HDL CHOLESTEROL 40 > OR = 40 mg/dL [employer] [facility] TRIGLYCERIDES 76 <150 mg/dL [employer] [facility] LDL-CHOLESTEROL 122(H) 99 mg/dL (calc) [employer] [facility] Comment: Reference range: <100 Desirable range <100 mg/dL for primary prevention; <70 mg/dL for patients with CHD or diabetic patients with > or = 2 CHD risk factors. LDL-C is now calculated using the Kwame calculation, which is a validated novel method providing better accuracy than the Friedewald equation in the estimation of LDL-C. Junior SS et al. MEAGAN. 2013;310(19): 2045-7026 (http://education.MyDatingTree/faq/AKS344) CHOL/HDLC RATIO 4.5 <5.0 (calc) [employer] [facility] NON-HDL CHOLESTEROL 139(H) <130 mg/dL (calc) [employer] [facility] Comment: For patients with diabetes plus 1 major ASCVD risk factor, treating to a non-HDL-C goal of <100 mg/dL (LDL-C of <70 mg/dL) is considered a therapeutic option. Blood Blood / Unknown 08/14/2022 1 0:11 AM EDT 08/14/2022 10:12 AM EDT Edd EL LAB - BLOOD DRAW Final Result [employer] [facility] [address] [address], [employer] [facility] [address] [place] [address] * COMPREHENSIVE METABOLIC PANEL (11/04/2020 8:10 AM EDT) Pathologist [facility] [place] GLUCOSE 97 65 - 99 mg/dL [employer] [facility] Comment: Fasting reference interval UREA NITROGEN (BUN) 18 7 - 25 mg/dL [employer] [facility] CREATININE (blood) 0.95 0.60 - 1.35 mg/dL [employer] [facility] GFR ESTIMATED 102 > OR = 60 mL/min/1 .73m2 [employer] [facility] EGFR 118 > OR = 60 mL/min/1 .73m2 [employer] [facility] BUN/CREATININE RATIO NOT APPLICABLE 6 - 22 [employer] [facility] SODIUM 138 135 - 146 mmol/L [employer] [facility] POTASSIUM 4.6 3.5 - 5.3 mmol/L [employer] [facility] CHLORIDE 100 98 - 110 mmol/L [employer] [facility] CARBON DIOXIDE 32 20 - 32 mmol/L [employer] [facility] CALCIUM 9.9 8.6 - 10.3 mg/dL [employer] [facility] PROTEIN, TOTAL 7.0 6.1 - 8.1 g/dL [facility] [employer] [facility] ALBUMIN 4.7 3.6 - 5.1 g/dL [employer] [facility] GLOBULIN 2.3 1.9 - 3.7 g/dL (calc) [employer] [facility] ALBUMIN/GLOBUL IN RATIO 2.0 1.0 - 2.5 (calc) [employer] [facility] BILIRUBIN, TOTAL 0.6 0.2 - 1.2 mg/dL [employer] [facility] ALKALINE PHOSPHATASE 80 36 - 130 U/L [employer] [facility] AST 23 10 - 40 U/L [employer] [facility] ALT 27 9 - 46 U/L [employer] [facility] Blood Blood / Unknown 11/04/2020 8 :10 AM EDT 11/04/2020 8:12 AM EDT Narrative [employer] [facility] - 11/04/2020 8:57 PM EDT FASTING:YES us Edd EL [facility] - BLOOD DRAW Edited Result - Final [employer] [facility] [address] [address], [employer] [facility] [address] [address] * HEPATITIS A,B,C PANEL (02/20/2018 10:35 AM EST) HEPATITIS B SURFACE ANTIBODY NEGATIVE NEGATIVE [facility] HEPATITIS B SURFACE ANTIGEN NEGATIVE NEGATIVE [facility] Comment: Over the counter supplements containing high doses of biotin may interfere with this assay. If interference is suspected, patients shoud be retested after refraining from biotin supplements for 72 hours. HEPATITIS C VIRUS DIAGNOSTIC NEGATIVE NEGATIVE [facility] HEPATITIS A ANTIBODY TOTAL NEGATIVE NEGATIVE [facility] Comment: Over the counter supplements containing high doses of biotin may interfere with this assay. If interference is suspected, patients shoud be retested after refraining from biotin supplements for 72 hours. HEPATITIS B CORE ANTIBODY NEGATIVE NEGATIVE [facility] Blood specimen (specimen) Blood / Unknown 02/20/2018 10:35 AM EST 02/20/2018 11:20 AM EST Narrative [facility] - 02/20/2018 4:34 PM EST [employer] [address] Editor Map - Migdalia Casey MD PT ID [id number] ORD# [id number] Alexander Don PA-C LAB - BLOOD DRAW Edited Resul t - Final Performing Organization Address [facility] [place] [address], * HIV-1 & HIV-2 ANTIBODIES (02/20/2018 10:35 AM EST) [facility] HIV 1 AND 2 ANTIBODY SCREEN NEGATIVE NEGATIVE [facility] Comment: This assay is a [...] AM EST 02/20/2018 11:20 AM EST Narrative [facility] 02/20/2018 5:03 PM EST [employer] [address] Editor Map - Migdalia Casey MD PT ID [id number] ORD# [id number] Alexander Don PA-C LAB - BLOOD DRAW Final Result Performing Organization Address [facility] de Phone Number [address] [place] [address], from Last 3 Months or Most Recently Relevant to Health Maintenance Insurance [employer] PAULSON/CARI DIAS Care Teams Porter Head Relationship Specialty Start Date End Date Edd Boyd PA [address] [place] [address] PCP - General [facility]ILY [facility] 09/09/20
== END 2024-10-31 09:05 | disposition home or self-care (01) ==
LOC: HO.HMCH 08:20
DX: Z00.00 Encounter for general adult medical examination without abnormal findings (principal); G47.33 Obstructive sleep apnea (adult) (pediatric); E66.01 Morbid (severe) obesity due to excess calories; Z68.41 Body mass index [BMI] 40.0-44.9, adult; E78.00 Pure hypercholesterolemia, unspecified; R74.01 Elevation of levels of liver transaminase levels; I10 Essential (primary) hypertension